=== PATIENT | female | born 1975 | race Caucasian/White ===

== ENCOUNTER 2017-01-31 17:19 | Emergency (ER) | payer MEDICAID ==
[2017-01-31 17:19] VITALS: BP 92/46
[~2017-01-31 17:19] MED LIST: ACET-704 PO; ALBU2.5V14 NEB; ALBU8.5H3 INH; AMOX875T PO; CEPH500C PO; HYDR-971 PO; IBUP800T PO; PSEU30CA PO
--- NOTE | 2017-01-31 18:25 | PHYS DOC ---
General Chief Complaint: SORE THROAT Stated Complaint: MOUTH BURNING/PAIN Time Seen by MD: 18:11 Source: patient Problems: History of Present Illness Initial Comments Patient here for sore throat and mouth pain. 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 Previous cervical disc surgeries. She says it flares up from time to time, this most recent episode about 3 weeks ago. She is not seen her physician about this. She is here now because she says she also has some mouth pain and pain in the upper part of the neck. She says she can't eat or drink anything because her mouth pisano when she does so. She seen no obvious sores or lesions. She said the mouth burning discomfort is new for her. She's had no fever or chills. There is some slight clear runny nose which she was allergies. There is no earache. She has trouble swallowing and talking, and says that she will she is able to tolerate by mouth fluids she really has not been eating or drinking very well. No chest pain or shortness of breath. There is no nausea vomiting or abdominal pain. There is no change amount of bladder habits and no focal extremity or neurologic complaints are noted. Patient's done nothing for this at home. She says she can't even use a throat lozenge because her mouth burn so much. She says "everything" makes her discomfort worse. She has appointment with her primary care doctor in March. Other than as noted there is no increasing or decreasing factors she is done nothing else for this home. Patient's past medical history is remarkable for the previous disc surgeries as well as asthma. She is an albuterol inhaler home. She smokes a quarter pack cigarettes daily. She is an occasional social user of ethanol. Allergies: Coded Allergies: fluticasone (Verified Allergy, Mild, 09/15/16) salmeterol (Verified Allergy, Mild, 09/15/16) Past Medical History Medical History: asthma, diabetes Surgical History: other Social History Smoker: less than 1 pack/day Alcohol: occasionally Review of Systems All Other Systems: Reviewed and Negative Physical Exam General Appearance: WD/WN, no apparent distress Ear, Nose, Throat: normal ENT inspection, normal pharynx Neck: full range of motion, supple, normal inspection, other Respiratory: lungs clear, normal breath sounds, no respiratory distress Cardiovascular: regular rate, rhythm, no edema Neurologic/Psychiatric: alert, normal mood/affect, oriented x 3 Skin: normal color Lymphatic: no adenopathy Comments Generally this well-developed well-nourished white female in no acute distress. Vitals are as noted. Pertinent findings on physical exam shows the ears to be clear. Throat is clear. The oral mucosa is inspected with no sores or lesions noted. There is no growths on the tongue. Patient has no dysphagia or problems with secretions. She does have a hoarse voice which she describes as chronic related to scar tissue. Patient is mildly tender over the bilateral high anterior neck area. There is no gross adenopathy. She says this is the side for new discomfort. She also some mild tenderness over the mid anterior neck which she says is old from the scar tissue. Neck is otherwise supple without adenopathy or JVD. There's no meningeal signs. Chest is clear and cardiovascular exams unremarkable. Patient awake alert oriented and cooperative. Remainder of physical exam is clinically unremarkable. Orders, Labs, Meds Old charts note prior ER visits for puncture wound to foot, UTI, chest pain,and sinusitis. This is her third visit here this year. 184 Notified by staff the patient apparently left the emergency department. She's not available for labs or x-rays. She did not confirm with anyone nor give a reason for departure. Physician encounter was complicated. Patient did seem to have some difficulty grasping questions regarding what was different today over her chronic discomfort, and when she said her pain was in a different place in her throat and I asked her where, she got somewhat upset and said "I'm not a doctor." She did seem to calm when I explained that I meant was what part of the throat, if she could just point to it. I did confirm her that her exam was normal, and I did explain that while we may not be able to identify the exact cause of her discomfort, we can certainly make sure not missing something more significant here in the ER. Patient appeared voice understanding. Remainder of the encounter was uncomplicated. Patient's considered to have eloped from the emergency department. EVELYN ALVARENGA MD Jan 31, 2017 18:25
== END 2017-01-31 19:01 | disposition left against medical advice (07) ==
LOC: ER 17:22
DX: K13.79 Other lesions of oral mucosa (principal); J02.9 Acute pharyngitis, unspecified; R13.10 Dysphagia, unspecified; R49.0 Dysphonia; M54.2 Cervicalgia; J45.909 Unspecified asthma, uncomplicated; F17.210 Nicotine dependence, cigarettes, uncomplicated; E11.9 Type 2 diabetes mellitus without complications
CPT/HCPCS: 99281

== ENCOUNTER 2017-05-31 15:13 | Emergency (ER) | payer SELFPAY ==
[~2017-05-31] VITALS: Ht 167.6 cm; Wt 95.0 kg
[~2017-05-31 15:13] MED LIST changes: -ALBU8.5H3 INH; +ALBU8.5H8 INH; -IBUP800T PO; +IBUP800T19 PO
--- NOTE | 2017-05-31 16:07 | RAD ---
Indication chest and flank pain. Duration 3 weeks. PA and lateral views of the chest were obtained and are compared to a single view examination 12/05/2016. The heart and pulmonary vessels appear normal. The lungs are clear of acute infiltrates. Significant pleural fluid is not seen. There is no pneumothorax. Postoperative changes in the cervical spine are noted. Overall a significant change compared to the previous exam is not seen. IMPRESSION: No acute finding. No significant change
[2017-05-31 16:37] LABS: CLARITY,URINE HAZY; COLOR,URINE YELLOW; GLUCOSE,URINE NEG (NEG)
[2017-05-31 16:39] LABS: BILIRUBIN,URINE NEG (NEG); NITRITE,URINE POS (NEG); RBC,URINE 20-40 /HPF (0-2); UROBILINOGEN,URINE 1 mg/dL (0.2 mg/dL); WBC,URINE >40 /HPF (0-4)
[2017-05-31 16:40] LABS: BACTERIA,URINE FEW /HPF (0-FEW); SQUAMOUS EPITHELIAL CELL,UR FEW /LPF
[2017-05-31 16:41] LABS: U PREG PATIENT NEGATIVE (NEG)
[2017-05-31 16:45] VITALS: BP 147/62
[2017-05-31] MEDS ORDERED: SULF1TAB24 PO (16:51)
--- NOTE | 2017-05-31 16:51 | PHYS DOC ---
Past History Past Medical History: [place] Past Surgical History: Tubal ligation, Other Smoking: Cigarettes Alcohol Use: None Drug Use: None Adult General Chief Complaint Chief Complaint: PAIN ON URINATION HPI HPI 42-year-old female presenting to the emergency department today with dysuria. She complains of suprapubic abdominal pain that radiates to the back. She thinks she has urinary tract infection. The pain is mild intermittent nonradiating and she describes it as a burning pain. Review of systems is negative for shortness of breath fevers. She does report having chills at home. She denies any new rashes numbness weakness or tingling. She does also complain of intermittent chest pain is been present for the past year. All other review of systems is negative unless otherwise noted in history of present illness. Course: 42-year-old female presenting to the emergency department today with dysuria found to have urinary tract infection. Given the patient's clinical symptoms radiating to the back the patient was prescribed bactrim for urinary tract infection. Chest x-ray and EKG unremarkable.Chest x-ray reviewed by myself shows no obvious infiltrate or pneumothorax present. No obvious acute cardiopulmonary process present. The patient was then discharged home in stable condition to follow up with their primary care physician over the next 2-3 days. They were to return if their symptoms worsened or if they were concerned for any reason. [id number] discharge instructions and return precautions were given. Patient's questions were answered to their satisfaction. Patient is comfortable plan. Review of Systems Review of Systems SEE ABOVE Allergies Allergies Allergies Coded Allergies Type Severity Reaction Last Updated Verified fluticasone Allergy Mild 09/15/16 Yes salmeterol Allergy Mild 09/15/16 Yes Physical Exam Physical Exam Constitutional: Well developed, well nourished, no acute distress, non-toxic appearance. [] HENT: Normocephalic, atraumatic, bilateral external ears normal, oropharynx moist, no oral exudates, nose normal. [] Eyes: PERRLA, EOMI, conjunctiva normal, no discharge. [] Neck: Normal range of motion, no tenderness, supple, no stridor. [] Cardiovascular:Heart rate regular rhythm, no murmur [] Lungs & Thorax: Bilateral breath sounds clear to auscultation [] Abdomen: Soft nontender abdomen without rebound tenderness or guarding present. Negative McBurneys point. Negative Kwong sign. No ecchymosis present. Skin: Warm, dry, no erythema, no rash. [] Back: No tenderness, no CVA tenderness. [] Extremities: No tenderness, no cyanosis, no clubbing, ROM intact, no edema. [] Neurologic: Alert and oriented X 3, normal motor function, normal sensory function, no focal deficits noted. [] Psychologic: Affect normal, judgement normal, mood normal. [] Current Patient Data Vital Signs Vital Signs Date Time Temp Pulse Resp B/P (MAP) Pulse Ox O2 Delivery O2 Flow Rate FiO2 05/31/17 16:00 98.7 82 20 98 Lab Results Laboratory Tests Test 05/31/17 16:00 Urine Collection Type Unknown Urine Color Yellow Urine Clarity Hazy Urine pH 5.0 Urine Specific [place] 1.025 Urine Protein 100 mg/dl (NEG-TRACE) Urine Glucose (UA) Neg mg/dL (NEG) Urine Ketones (Stick) 15 mg/dL (NEG) Urine Blood Mod (NEG) Urine Nitrite Pos (NEG) Urine Bilirubin Neg (NEG) Urine Urobilinogen Dipstick 1 mg/dL (0.2 mg/dL) Urine Leukocyte Esterase Mod (NEG) Urine RBC 20-40 /HPF (0-2) Urine WBC >40 /HPF (0-4) Urine Squamous Epithelial Cells Few /LPF Urine Bacteria Few /HPF (0-FEW) Urine Test Negative (NEG) EKG EKG [] Radiology/Procedures Radiology/Procedures [] Course & Med Decision Making Course & Med Decision Making Pertinent Labs and Imaging studies reviewed. (See chart for details) [] Dragon Disclaimer Dragon Disclaimer This chart was dictated in whole or in part using Voice Recognition software in a busy, high-work load, and often noisy Emergency Department environment. It may contain unintended and wholly unrecognized errors or omissions. Departure Departure: Impression: Primary Impression: Dysuria Additional Impressions: UTI (urinary tract infection) Chest pain Disposition: HOME, SELF-CARE Condition: STABLE Referrals: NON,STAFF (PCP) Patient Instructions: Urinary Tract Infection Additional Instructions: Thank you for allowing us to participate in your care today. Followup with your primary care physician in 3 days if your symptoms do not improve. Call your Primary Doctor tomorrow and inform them of your visit today. If you do not have a primary care provider you can ask for a list of our primary care providers. Return to the emergency department you have any new or concerning findings. This should be evaluated by the primary care physician and any necessary consulting services for continued management within a few days after discharge. Return to emergency room if you have any new or concerning symptoms including but not limited to fever, chills, nausea, vomiting, intractable pain, any new rashes, chest pain, shortness of air, uncontrolled bleeding, difficulty breathing, and/or vision loss. Scripts Sulfamethoxazole/Trimethoprim (BACTRIM DS TABLET) 1 Each Tablet 1 TAB PO BID, #20 TAB Prov: DEMETRIUS OROZCO MD 05/31/17 Problem Qualifiers DEMETRIUS OROZCO MD May 31, 2017 16:51
--- NOTE | 2017-05-31 17:14 | EKG ---
[address] [address] Test Date: 2017-05-31 Test Time: 16:04:32 Pat Name: KEELEY LI Department: Room: Gender: F Cutter Grinder Operator: : 1975 Requested By: DEMETRIUS OROZCO Order Number: [id number] Reading MD: Measurements Intervals [place] Rate: 63 P: 31 CO: 142 QRS: 45 QRSD: 80 T: 34 QT: 414 QTc: 427 Interpretive Statements SINUS RHYTHM NORMAL ECG RI6.01 Unconfirmed report No previous ECG available for comparison
== END 2017-05-31 16:54 | disposition home or self-care (01) ==
LOC: ER 15:13
DX: N39.0 Urinary tract infection, site not specified (principal); R07.9 Chest pain, unspecified; I25.2 Old myocardial infarction; F17.210 Nicotine dependence, cigarettes, uncomplicated; Z88.8 Allergy status to other drugs, medicaments and biological substances
CPT/HCPCS: 71020; 81001; 81025; 87086; 87186; 93005; 99285-25

== ENCOUNTER 2017-08-13 06:11 | Emergency (ER) | payer SELFPAY ==
[~2017-08-13] VITALS: Ht 167.6 cm; Wt 83.0 kg
[~2017-08-13 06:11] MED LIST changes: +SULF1TAB24 PO
--- NOTE | 2017-08-13 06:40 | PHYS DOC ---
General Chief Complaint: URINARY RETENTION Stated Complaint: UNABLE TO URINATE Time Seen by MD: 06:34 Source: patient, old records Exam Limitations: no limitations Problems: History of Present Illness Initial Comments Pt is 42/F to ED "I get frequent UTIs" Pt states she's had frequency/hesitancy/dysuria for several days. She says symptoms are identical to prior urinary tract infections. Her last ED visit was May 2017 and her urine culture was attached to the chart see below. She says she was discharged with Bactrim however after that didn't work changed over to amoxicillin 875 mg which worked after several days and she's had no other issues since then. She says she just moved to [place] from [place] and is waiting for a disability status thus she hasn't established with a primary care doctor. She does have Medicaid and I encouraged her to establish with a doctor as soon as possible for health care maintenance and to follow-up from today's visit. She denies any fever chills sweats or myalgias, she's had no flank discomfort and no gross blood has been noted in her urine. She's had no pre- arrival treatment patient denies any other complaints. RN reports ED VSS RUN DATE: 06/02/17 [facility] *LIVE* PAGE 1 RUN TIME: 4183 Specimen Inquiry PATIENT: KEELEY LI ACCT: [id number] LOC: U : [id number] AGE/SX: 42/F ROOM: REG : 05/31/[address]: DEMETRIUS OROZCO MD : 1975 BED: DIS : STATUS: DEP ER TLOC: SPEC #: [id number] JEANNETTE: 05/31/17 STATUS: COMP REQ #: [id number] RECD: 05/31/[address]: DEMETRIUS OROZCO MD SOURCE: VOID ENTR: 05/31/[address]: NE,STAFF SPDESC: ORDERED: URINE CULTURE Procedure Result URINE CULTURE Final Final report URINE CULT RES 1 Final Escherichia coli 25,000-50,000 colony forming units per mL ANTIMICROBIAL SUSCEPTIBILITY Final Comment S = Susceptible; I = Intermediate; R = Resistant P = Positive; N = Negative MICS are expressed in micrograms per mL Antibiotic RSLT#1 RSLT#2 RSLT#3 RSLT#4 Amoxicillin/Clavulanic Acid S Ampicillin S Cefepime S Ceftriaxone S Cefuroxime S Cephalothin I Ciprofloxacin R Ertapenem S Gentamicin S Imipenem S Levofloxacin R Nitrofurantoin S Piperacillin S Tetracycline R Tobramycin S Trimethoprim/Sulfa R Performed at: [address] [id number] Studio Director: Abbey Valero MD, Phone: [phone] END OF REPORT Timing/Duration: getting worse (few days) Severity: moderate Modifying Factors: improves with other Associated Symptoms: other Allergies: Coded Allergies: fluticasone (Verified Allergy, Mild, 09/15/16) salmeterol (Verified Allergy, Mild, 09/15/16) Past Medical History Medical History: asthma, diabetes, heart attack, heart disease, urinary tract infection Surgical History: other (tubal ligation) Social History Smoker: cigarettes Alcohol: none Drugs: none Review of Systems Constitutional: denies chills, denies diaphoresis, denies fever, denies malaise Respiratory: denies cough, denies shortness of breath Cardiovascular: denies chest pain, denies palpitations, denies syncope Gastrointestinal: abdominal pain (mild suprapubic), denies constipation, denies nausea, denies vomiting Genitourinary: see HPI, denies discharge Musculoskeletal: denies back pain, denies joint swelling, denies neck pain Psychiatric/Neurological: denies headache, denies numbness, denies paresthesia Physical Exam General Appearance: WD/WN, no apparent distress Ear, Nose, Throat: hearing grossly normal, normal ENT inspection, normal pharynx Neck: non-tender, supple Respiratory: normal breath sounds, no respiratory distress Cardiovascular: normal peripheral pulses, regular rate, rhythm Gastrointestinal: soft (mild suprapubic tenderness no rebound guarding or palpable masses, negative Kwong negative McBurney) Back: no CVA tenderness, no vertebral tenderness Extremities: non-tender, normal inspection Neurologic/Psychiatric: psychotherapist counselor II-XII nml as tested, no motor/sensory deficits, alert, oriented x 3 Orders, Labs, Meds Urine dipstick is grossly positive in the emergency department. I discussed antibiotic choice options with the patient based upon her May 2017 urine culture and sensitivity results. She says she does best with the amoxicillin, she is agreeable to by mouth Pyridium and IM Rocephin in the emergency department and prescription will be given. She is advised to stop smoking and encouraged to establish with a primary care doctor to follow-up from this ED visit and urine culture as well as to consider outpatient urologic referral. She expressed agreement and understanding with the treatment plan. Departure Time of Disposition: 06:49 Disposition: HOME, SELF-CARE Diagnosis: Recurrant Complicated UTI Condition: GOOD Patient Instructions: Urinary Tract Infection, [id number] Additional Instructions: Aggressive hydration to avoid dehydration. OTC tylenol as needed. Rx: amoxicillin 875mg #20, pyridium As discussed it is recommended that you follow-up with a primary care doctor in the next 4-5 days for recheck and to go over your urine culture results. In addition after discussion with your primary care doctor you may need an outpatient urology referral. Return to ED with new or changing symptoms. OLIVIA VORA DO Aug 13, 2017 06:40
[2017-08-13] MEDS ORDERED: PHEN100T82 PO (06:49)
[2017-08-13] MEDS ORDERED: AMOX875T PO (06:49)
[2017-08-13] MEDS ORDERED: cefTRIAXone IM 1 GM VIAL IM ONE (07:00)
[2017-08-13] MEDS ORDERED: PHENAZOPYRIDINE 100 MG TABLET. PO ONE (07:00)
[2017-08-13 07:15] VITALS: BP 102/67
[2017-08-13 07:53] LABS: BILIRUBIN,URINE NEG (NEG); CLARITY,URINE HAZY; COLOR,URINE YELLOW; GLUCOSE,URINE NEG (NEG); NITRITE,URINE NEG (NEG); UROBILINOGEN,URINE 2 mg/dL (0.2 mg/dL)
== END 2017-08-13 07:18 | disposition home or self-care (01) ==
LOC: ER 06:11
DX: N39.0 Urinary tract infection, site not specified (principal); E11.9 Type 2 diabetes mellitus without complications; F17.210 Nicotine dependence, cigarettes, uncomplicated; J45.909 Unspecified asthma, uncomplicated; Z87.440 Personal history of urinary (tract) infections; Z88.8 Allergy status to other drugs, medicaments and biological substances
CPT/HCPCS: 81003; 87086; 96372; 99283; J0696